=== PATIENT | female | born 1975 | race Caucasian/White ===

== ENCOUNTER → 2021-02-09 | Outpatient (CLI) | payer OTHER | LOC: KOH-I 15:45 | DX: M79.604 Pain in right leg (principal); M25.531 Pain in right wrist; M54.41 Lumbago with sciatica, right side | CPT/HCPCS: 72100; 73100; 73590 ==

== ENCOUNTER → 2021-08-21 | Outpatient (CLI) | payer OTHER | LOC: MAMO 10:31 | DX: Z12.31 Encounter for screening mammogram for malignant neoplasm of breast (principal) | CPT/HCPCS: 77063; 77067 ==